=== PATIENT | male | born 1990 | race African-American/Black ===

== ENCOUNTER 2023-03-13 21:43 | Emergency (ER) | payer SELFPAY ==
[~2023-03-13] VITALS: Ht 167.6 cm; Wt 73.0 kg
[2023-03-13 21:52] VITALS: BP 124/84; PULSE 83; RESP 17; TEMP 98.4; O2SAT 99
[2023-03-13] MEDS ORDERED: ONDANSETRON HCL 4MG/2ML INJ IV STA (22:55)
[2023-03-13] MEDS ORDERED: FENTANYL CITRATE/PF 50MCG/ML 2ML VIAL IV ONE (23:00)
[2023-03-13] MEDS ORDERED: DIAZEPAM 5 MG/ML 2ML CPJ IV ONE (23:00)
[2023-03-13] MEDS ORDERED: SODIUM CHLORIDE 0.9% 500 ML IV ONE (23:00)
== END 2023-03-13 23:16 | disposition left against medical advice (07) ==
LOC: ER 21:43 → EDSEX 21:43 → ER 23:16
DX: M54.2 Cervicalgia (principal); G82.20 Paraplegia, unspecified
CPT/HCPCS: 99283; J7040